=== PATIENT | female | born 1930 | race Caucasian/White ===

== ENCOUNTER → 2017-05-12 | Outpatient (CLI) | payer MEDICARE, BC ==
[~2017-05-12] MED LIST: AMLO2.5T PO; SYNT88TA PO
[2017-05-12 13:19] LABS: BASOPHIL % 0.6 % (0.0-2.0); EOSINOPHIL # 0.1 TH/MM3 (0-0.4); EOSINOPHIL % 1.5 % (0.0-4.0); HEMATOCRIT 36.1 % (35.0-46.0); HEMO FLAGS DIFF FINAL; LYMPH % 26.8 % (9.0-44.0); MEAN CELL VOLUME 90.8 FL (80.0-100.0); MEAN CORPUSCULAR HEMOGLOBIN 29.7 PG (27.0-34.0); MEAN CORPUSCULAR HGB CONC 32.7 % (32.0-36.0); MONO % 6.2 % (0.0-8.0); NEUT % 64.9 % (16.0-70.0); PLATELET COUNT 311 TH/MM3 (150-450); RED BLOOD COUNT 3.97 MIL/MM3 (4.00-5.30); RED CELL DISTRIBUTION WIDTH 14.3 % (11.6-17.2); WHITE BLOOD COUNT 7.6 TH/MM3 (4.0-11.0)
[2017-05-12 13:35] LABS: ANION GAP 8 MEQ/L (5-15); AST (GOT) 18 U/L (15-37); BICARBONATE 26.5 MEQ/L (21.0-32.0); BLOOD UREA NITROGEN 20 MG/DL (7-18); CHLORIDE 106 MEQ/L (98-107); POTASSIUM 3.8 MEQ/L (3.5-5.1); SODIUM (NA) 140 MEQ/L (136-145)
[2017-05-12 13:36] LABS: GLOMERULAR FILTRATION RATE 66 ML/MIN (>89); GLUCOSE,FASTING 86 MG/DL (74-99)
[2017-05-12 13:48] LABS: ALKALINE PHOSPHATASE 63 U/L (45-117); ALT (GPT) 22 U/L (10-53); FREE T4 1.13 NG/DL (0.76-1.46); HDL CHOLESTEROL 60.5 MG/DL (40.0-60.0); LDL CHOLESTEROL 193 MG/DL (0-99); TOTAL BILIRUBIN ADULT 0.4 MG/DL (0.2-1.0)
== END ==
LOC: PLAB 08:20
PROVIDERS: ATTEND Family Medicine
DX: E78.4 Other hyperlipidemia (principal); E03.9 Hypothyroidism, unspecified; M81.0 Age-related osteoporosis without current pathological fracture; E55.9 Vitamin D deficiency, unspecified
CPT/HCPCS: 36415; 80053; 80061; 82306; 84439; 84443; 85025

== ENCOUNTER → 2017-11-17 | Outpatient (CLI) | payer MEDICARE, BC ==
[2017-11-17 09:42] LABS: AUTOMATED NEUTROPHIL # 5.3 TH/MM3 (1.8-7.7); BASOPHIL # 0.1 TH/MM3 (0-0.2); BASOPHIL % 0.8 % (0.0-2.0); EOSINOPHIL # 0.1 TH/MM3 (0-0.4); HEMATOCRIT 34.9 % (35.0-46.0); HEMO FLAGS DIFF FINAL; LYMPHOCYTE # 2.1 TH/MM3 (1.0-4.8); MEAN CORPUSCULAR HEMOGLOBIN 31.3 PG (27.0-34.0); MEAN CORPUSCULAR HGB CONC 33.7 % (32.0-36.0); NEUT % 66.2 % (16.0-70.0); PLATELET COUNT 289 TH/MM3 (150-450); RED BLOOD COUNT 3.76 MIL/MM3 (4.00-5.30); RED CELL DISTRIBUTION WIDTH 14.1 % (11.6-17.2); WHITE BLOOD COUNT 8.1 TH/MM3 (4.0-11.0)
[2017-11-17 10:03] LABS: ANION GAP 6 MEQ/L (5-15); AST (GOT) 16 U/L (15-37); BICARBONATE 28.3 MEQ/L (21.0-32.0); BLOOD UREA NITROGEN 20 MG/DL (7-18); CHLORIDE 105 MEQ/L (98-107); GLOMERULAR FILTRATION RATE 55 ML/MIN (>89); GLUCOSE,FASTING 90 MG/DL (74-99); POTASSIUM 3.9 MEQ/L (3.5-5.1); SODIUM (NA) 139 MEQ/L (136-145)
[2017-11-17 10:12] LABS: ALKALINE PHOSPHATASE 62 U/L (45-117); ALT (GPT) 16 U/L (10-53); FREE T4 1.02 NG/DL (0.76-1.46); HDL CHOLESTEROL 62.7 MG/DL (40.0-60.0); LDL CHOLESTEROL 163 MG/DL (0-99); TOTAL BILIRUBIN ADULT 0.4 MG/DL (0.2-1.0)
== END ==
LOC: PLAB 07:02
PROVIDERS: ATTEND Family Medicine
DX: E78.4 Other hyperlipidemia (principal); E03.9 Hypothyroidism, unspecified; M81.0 Age-related osteoporosis without current pathological fracture; E55.9 Vitamin D deficiency, unspecified
CPT/HCPCS: 36415; 80053; 80061; 82306; 84439; 84443; 85025

== ENCOUNTER → 2018-05-15 | Outpatient (CLI) | payer MEDICARE, BC ==
[2018-05-15 10:33] LABS: BASOPHIL % 0.5 % (0.0-2.0); EOSINOPHIL # 0.1 TH/MM3 (0-0.4); EOSINOPHIL % 0.8 % (0.0-4.0); HEMATOCRIT 38.4 % (35.0-46.0); HEMOGLOBIN 12.7 GM/DL (11.6-15.3); LYMPH % 25.5 % (9.0-44.0); LYMPHOCYTE # 2.3 TH/MM3 (1.0-4.8); MEAN CELL VOLUME 90.5 FL (80.0-100.0); MEAN CORPUSCULAR HEMOGLOBIN 29.9 PG (27.0-34.0); MEAN PLATELET VOLUME 8.4 FL (7.0-11.0); MONO % 6.9 % (0.0-8.0); MONOCYTE # 0.6 TH/MM3 (0-0.9); NEUT % 66.3 % (16.0-70.0); PLATELET COUNT 277 TH/MM3 (150-450); RED BLOOD COUNT 4.24 MIL/MM3 (4.00-5.30); RED CELL DISTRIBUTION WIDTH 14.3 % (11.6-17.2); WHITE BLOOD COUNT 9.1 TH/MM3 (4.0-11.0)
[2018-05-15 11:03] LABS: ALBUMIN 3.7 GM/DL (3.4-5.0); BICARBONATE 26.5 MEQ/L (21.0-32.0); CALCIUM 8.7 MG/DL (8.5-10.1); CHLORIDE 107 MEQ/L (98-107); CHOLESTEROL 268 MG/DL (120-200); CREATININE 0.93 MG/DL (0.50-1.00); GLOMERULAR FILTRATION RATE 57 ML/MIN (>89); SODIUM (NA) 143 MEQ/L (136-145)
[2018-05-15 11:24] LABS: ALKALINE PHOSPHATASE 67 U/L (45-117); ALT (GPT) 23 U/L (10-53); AST (GOT) 18 U/L (15-37); BLOOD UREA NITROGEN 15 MG/DL (7-18); CHOLESTEROL/ HDL RATIO 4.19 RATIO; FREE T4 1.38 NG/DL (0.76-1.46); GLUCOSE,FASTING 87 MG/DL (74-99); HDL CHOLESTEROL 63.9 MG/DL (40.0-60.0); LDL CHOLESTEROL 180 MG/DL (0-99); TOTAL BILIRUBIN ADULT 0.4 MG/DL (0.2-1.0); TOTAL PROTEIN 7.6 GM/DL (6.4-8.2); TRIGLYCERIDES 123 MG/DL (42-150)
== END ==
LOC: PLAB 08:11
PROVIDERS: ATTEND Family Medicine
DX: E78.4 Other hyperlipidemia (principal); E55.9 Vitamin D deficiency, unspecified; E03.9 Hypothyroidism, unspecified
CPT/HCPCS: 36415; 80053; 80061; 82306; 84439; 84443; 85025

== ENCOUNTER 2018-08-11 14:29 | Observation (INO) ==
--- NOTE | 2018-08-11 15:45 | ED ---
HPI General Chief complaint: Extremity Injury, Upper Stated complaint: shoulder pain Time Seen by Provider: 08/11/18 15:18 Source: patient and family Mode of arrival: ambulatory Limitations: no limitations History of Present Illness HPI narrative: patient has dementia, and has a POA. per daughter has a DNR in place. PCP is dr nazario. last week patient was admitted for TIA today wilian is seen for c/o left shoulder and wrist pain....denies other apparent symptoms however daughter noticed hr has been decreasing from the 70's down to 40. Onset (ago): day(s) (1) Location: left and upper extremity Radiation: non-radiation Severity: mild Severity scale (1-10): 4 Quality: sharp Pain Consistency: intermittent Relieving factors: none Exacerbating factors: none Associated symptoms: denies other symptoms Treatments prior to arrival: none Related Data Home Medications Medication Instructions Recorded Confirmed amlodipine 5 mg PO DAILY 08/05/18 08/11/18 donepezil 10 mg PO DAILY 08/05/18 08/11/18 ergocalciferol (vitamin D2) 50,000 unit PO QWEEK 08/05/18 08/11/18 [Vitamin D2] levothyroxine 88 mcg PO DAILY 08/05/18 08/11/18 aspirin 81 mg PO DAILY 08/11/18 08/11/18 Allergies Allergy/AdvReac Type Severity Reaction Status Date / Time quetiapine [From Seroquel] AdvReac Tingling Verified 08/11/18 15:39 Review of Systems ROS: all other systems reviewed are negative PMFSH History History Provided By: Patient Medical History Medical History Alzheimer disease (Acute) Hypertension (Acute) Hypothyroid (Acute) Social History Social History Substance History: No History of Abuse Second Hand Smoke Exposure: No Smoking Status: Never smoker How Often Do You Have a Drink Containing Alcohol: Never Recent Travel in [facility] within the Last 8 Weeks: No Recent Out of Country Travel within the Last 8 Weeks: No Exam Narrative Exam Narrative: GENERAL: elderly female in no apparent distress. SKIN: Warm and dry. HEAD: Atraumatic. Normocephalic. EYES: Pupils equal and round. No scleral icterus. No injection or drainage. ENT: No nasal bleeding or discharge. Mucous membranes pink and moist. NECK: Trachea midline. No JVD. CARDIOVASCULAR: bradycardic rate, irregular rhythm RESPIRATORY: No accessory muscle use. Clear to auscultation. Breath sounds equal bilaterally. GASTROINTESTINAL: Abdomen soft, non-tender, nondistended. No rebound or guarding MUSCULOSKELETAL: Extremities without clubbing, cyanosis, or edema. No obvious deformities. NEUROLOGICAL: Awake and alert. No obvious cranial nerve deficits. Motor grossly within normal limits. Five out of 5 muscle strength in the arms and legs. Normal speech. PSYCHIATRIC: Appropriate mood and affect; insight and judgment normal. Course Initial Documented Vital Signs Temperature 98.9 F 08/11/18 14:49 Pulse Rate 40 L 08/11/18 14:49 Respiratory Rate 16 08/11/18 14:49 Blood Pressure 112/64 08/11/18 14:49 Pulse Oximetry 98 08/11/18 14:49 Last Documented Vital Signs Temperature 98.9 F 08/11/18 14:49 Pulse Rate 64 08/11/18 15:42 Respiratory Rate 17 08/11/18 15:42 Blood Pressure 142/62 H 08/11/18 15:42 Pulse Oximetry 99 08/11/18 15:42 Medical Decision Making MDM Narrative Medical decision making narrative: No leukocytosis, no major anemia is H&H is 11.5/35, normal platelet count, no evidence of any major left shift. Electrolytes are all within normal limits. Normal kidney liver and pancreatic enzymes. First set of cardiac enzymes negative elevated beta natruretic peptide of 270 Normal TSH screen X-ray of the wrist read by radiologist as diffuse bone demineralization and mild osteoarthritic findings but without evidence of fracture Shoulder x-ray read by radiologist as chronic rotator cuff injury, degenerative changes as detailed above. However no fracture or dislocation noted Chest x-ray read by radiologist as no acute cardiopulmonary disease Medical Screen Exam Complete: Yes Emergency Medical Condition: Yes Medical Records Medical records reviewed: Yes I reviewed the patient's medical records. Lab Data Result diagrams: 08/11/18 16:03 08/11/18 16:03 Lab Results 08/11/18 08/11/18 08/11/18 Range/Units 16:03 16:03 16:03 WBC 8.0 (4.0-11.0) th/mm3 RBC 3.73 L (4.00-5.30) mil/mm3 Hgb 11.5 L (11.6-15.3) gm/dL Hct 34.9 L (35.0-46.0) % MCV 93.6 (80.0-100.0) fL MCH 30.9 (27.0-34.0) pg MCHC 33.0 (32.0-36.0) % RDW 13.4 (11.6-17.2) % Plt Count 287 (150-450) th/mm3 MPV 8.6 (7.0-11.0) fL Neut % (Auto) 75.8 H (16.0-70.0) % Lymph % (Auto) 16.4 (9.0-44.0) % Cass % (Auto) 6.9 (0.0-8.0) % Eos % (Auto) 0.3 (0.0-4.0) % Baso % (Auto) 0.6 (0.0-2.0) % Neut # (Auto) 6.1 (1.8-7.7) th/mm3 Lymph # (Auto) 1.3 (1.0-4.8) th/mm3 Cass # (Auto) 0.6 (0.0-0.9) th/mm3 Eos # (Auto) 0.0 (0.0-0.4) th/mm3 Baso # (Auto) 0.0 (0.0-0.2) th/mm3 WBC Differential . Differential Comment Auto diff final Sodium 140 (136-145) meq/L Potassium 3.5 (3.5-5.1) meq/L Chloride 104 (98-107) meq/L Carbon Dioxide 24.8 (21.0-32.0) meq/L Anion Gap 11 (5-15) meq/L BUN 10 (7-18) mg/dL Creatinine 0.96 (0.50-1.00) mg/dL Estimated GFR 55 L (>89) mL/min Random Glucose 117 H (74-106) mg/dL Calcium 8.4 L (8.5-10.1) mg/dL AST 15 (15-37) U/L ALT 14 (10-53) U/L B-Natriuretic Peptide 217 H (0-100) pg/mL Albumin 2.9 L (3.4-5.0) g/dL Lipase 37 L (73-393) U/L TSH (0.358-3.740) uIU/mL 08/11/18 Range/Units 16:03 WBC (4.0-11.0) th/mm3 RBC (4.00-5.30) mil/mm3 Hgb (11.6-15.3) gm/dL Hct (35.0-46.0) % MCV (80.0-100.0) fL MCH (27.0-34.0) pg MCHC (32.0-36.0) % RDW (11.6-17.2) % Plt Count (150-450) th/mm3 MPV (7.0-11.0) fL Neut % (Auto) (16.0-70.0) % Lymph % (Auto) (9.0-44.0) % Cass % (Auto) (0.0-8.0) % Eos % (Auto) (0.0-4.0) % Baso % (Auto) (0.0-2.0) % Neut # (Auto) (1.8-7.7) th/mm3 Lymph # (Auto) (1.0-4.8) th/mm3 Cass # (Auto) (0.0-0.9) th/mm3 Eos # (Auto) (0.0-0.4) th/mm3 Baso # (Auto) (0.0-0.2) th/mm3 WBC Differential Differential Comment Sodium (136-145) meq/L Potassium (3.5-5.1) meq/L Chloride (98-107) meq/L Carbon Dioxide (21.0-32.0) meq/L Anion Gap (5-15) meq/L BUN (7-18) mg/dL Creatinine (0.50-1.00) mg/dL Estimated GFR (>89) mL/min Random Glucose (74-106) mg/dL Calcium (8.5-10.1) mg/dL AST (15-37) U/L ALT (10-53) U/L B-Natriuretic Peptide (0-100) pg/mL Albumin (3.4-5.0) g/dL Lipase (73-393) U/L TSH 2.160 (0.358-3.740) uIU/mL Imaging Data Radiologist's impression: Chest X-Ray 08/11/18 15:20 CONCLUSION: No acute cardiopulmonary disease. Shoulder X-Ray 08/11/18 15:22 CONCLUSION: 1. Chronic rotator cuff injury. Outpatient MRI could be utilized to further assess. 2. Degenerative changes as detailed above. Wrist X-Ray 08/11/18 15:22 CONCLUSION: Diffuse bone demineralization and mild osteoarthritic findings of the wrist. No evidence of acute fracture. ECG Data EKG Prior to Arrival: No Attestation: I personally reviewed and interpreted this ECG as follows: Prior ECG tracings: not available for review Interpretation: Normal sinus rhythm with frequent ectopic PVCs in a bigeminal pattern, baseline heart rate approximately high 30s to low 40s, however due to the bigeminy PVCs the patient's heart rate is been recognized by the machine at 68. Right bundle branch block, first-degree AV block Discharge Plan Discharge Disposition Patient Disposition: 30 Still Patient Discharge Condition Condition: Fair Discharge Details Diagnosis: Bradycardia, Bigeminal rhythm Physicians Team ED Provider: Abdoulaye Mohan Primary Care Provider: Verenice Nazario Rxs /Orders / Referrals /Forms Prescriptions: No Action aspirin 81 mg Tablet,Chewable 81 mg PO DAILY RF: 0 amlodipine 5 mg Tablet 5 mg PO DAILY RF: 0 levothyroxine 88 mcg Capsule 88 mcg PO DAILY RF: 0 donepezil 10 mg Tablet 10 mg PO DAILY RF: 0 ergocalciferol (vitamin D2) [Vitamin D2] 50,000 unit Capsule 50,000 unit PO QWEEK RF: 0 Status ED Status: With Doctor
--- NOTE | 2018-08-11 16:19 | XR ---
EXAM DATE: 08/11/2018 4:00 PM EDT AGE/SEX: 88 years / Female INDICATIONS: Chest pain. CLINICAL DATA: This is the patient's initial encounter. Patient reports that signs and symptoms have been present for 3 days and indicates a pain score of 5/10. MEDICAL/SURGICAL HISTORY: None. None. COMPARISON: [facility] [place] 1V SINGLE AP, 08/05/2018. . FINDINGS: A single AP view of the chest demonstrates the lungs to be symmetrically aerated without evidence of mass, infiltrate or effusion. The cardiomediastinal contours are unremarkable. High riding humeral h kareem bilaterally. Degenerative changes involving the shoulders bilaterally as well as the thoracic sp ine. Mild scoliotic curvature. CONCLUSION: No acute cardiopulmonary disease. Electronically signed by: Phoenix Lewis MD 08/11/2018 4:18 PM EDT
--- NOTE | 2018-08-11 16:20 | XR ---
EXAM DATE: 08/11/2018 4:05 PM EDT AGE/SEX: 88 years / Female INDICATIONS: Left wrist pain. Unknown trauma. CLINICAL DATA: This is the patient's initial encounter. Patient reports that signs and symptoms have been present for 3 days and indicates a pain score of 6/10. MEDICAL/SURGICAL HISTORY: None. None. COMPARISON: No prior exams available for comparison. FINDINGS: 3 views of the left wrist. Diffuse bone demineralization. Small osteophytes and mild narrowing of the thumb carpometacarpal joint and scaphoid trapezium trapezoid joint. No evidence of fracture. Alignme nt within normal limits. Chondrocalcinosis of the triangular fibrocartilage. CONCLUSION: Diffuse bone demineralization and mild osteoarthritic findings of the wrist. No evidence of acute fra cture. Electronically signed by: Domo Yu MD 08/11/2018 4:19 PM EDT
--- NOTE | 2018-08-11 16:22 | XR ---
EXAM DATE: 08/11/2018 4:04 PM EDT AGE/SEX: 88 years / Female INDICATIONS: Chronic left shoulder pain. CLINICAL DATA: This is the patient's initial encounter. Patient reports that signs and symptoms have been present for 3 days and indicates a pain score of 5/10. MEDICAL/SURGICAL HISTORY: None. None. COMPARISON: No prior exams available for comparison. FINDINGS: 4 views left shoulder reveal a high riding humeral head. There is narrowing of the subacromial space. Degenerative changes at the AC joint with mild spur formation. Glenohumeral joint shows mild narrowi ng without osteophyte production. No fracture or dislocation. Soft tissues are unremarkable. CONCLUSION: 1. Chronic rotator cuff injury. Outpatient MRI could be utilized to further assess. 2. Degenerative changes as detailed above. Electronically signed by: Phoenix Lewis MD 08/11/2018 4:21 PM EDT
[2018-08-11 16:27] LABS: Baso % (Auto) 0.6 % (0.0-2.0); Eos % (Auto) 0.3 % (0.0-4.0); Hematocrit 34.9 % (35.0-46.0); Hemoglobin 11.5 gm/dL (11.6-15.3); Lymph # (Auto) 1.3 th/mm3 (1.0-4.8); Lymph % (Auto) 16.4 % (9.0-44.0); Mean Corpuscular Hemoglobin 30.9 pg (27.0-34.0); Mean Corpuscular Volume 93.6 fL (80.0-100.0); Mean Platelet Volume 8.6 fL (7.0-11.0); Mono # (Auto) 0.6 th/mm3 (0.0-0.9); Mono % (Auto) 6.9 % (0.0-8.0); Neut # (Auto) 6.1 th/mm3 (1.8-7.7); Neut % (Auto) 75.8 % (16.0-70.0); Platelet Count 287 th/mm3 (150-450); Red Blood Count 3.73 mil/mm3 (4.00-5.30); Red Cell Distribution Width 13.4 % (11.6-17.2)
[2018-08-11 16:49] LABS: Alanine Aminotransferase 14 U/L (10-53); Albumin 2.9 g/dL (3.4-5.0); Anion Gap 11 meq/L (5-15); Aspartate Aminotransferase 15 U/L (15-37); Blood Urea Nitrogen 10 mg/dL (7-18); Calcium 8.4 mg/dL (8.5-10.1); Carbon Dioxide 24.8 meq/L (21.0-32.0); Chloride 104 meq/L (98-107); Glomerular Filtration Rate 55 mL/min (>89); Glucose,Random 117 mg/dL (74-106); Lipase 37 U/L (73-393); Potassium 3.5 meq/L (3.5-5.1); Sodium 140 meq/L (136-145)
[2018-08-11 16:53] LABS: Alkaline Phosphatase 67 U/L (45-117); Total Protein 6.8 g/dL (6.4-8.2)
[2018-08-11 17:15] LABS: Creatine Kinase 62 U/L (26-192)
[2018-08-11 17:35] LABS: Bacteria,Urine Rare /hpf; Bilirubin,Urine Negative (Negative); Clarity,Urine Hazy (Clear); Color,Urine Yellow (Yellw/Straw); Glucose,Urine (UA) Negative (Negative); Leukocyte Esterase,Urine Moderate (Negative); Nitrite,Urine Negative (Negative); Specific Gravity,Urine 1.003 (1.002-1.035); Squamous Epithelial Cell,Urine 1 /hpf (0-5)
[2018-08-11] MEDS ORDERED: Acetaminophen 325 MG Tablet PO PRN (18:02)
--- NOTE | 2018-08-11 18:21 | P.HP ---
History of Present Illness Primary Care Physician: Verenice Holland MD History of Present Illness: 88-year-old female with a history of dementia and hypertension presents to the ER today after her juice tester found that her heart rate was in the 30s. The overall picture began approximately 6 weeks ago when she began to experience periodic dyspnea with exertion, unlike her norm. Approximately 2 weeks ago she was started on Seroquel for behavioral issues related to dementia. She began having episodes of unresponsiveness and odd twitch-like behavior. 1 week ago she had a significant episode with weakness and unconsciousness and was brought to the ER for evaluation. Evaluation at that time showed no abnormality and she was deemed to have had a TIA. Since that time she has had less severe episodes including facial twitching, periodic brief unresponsiveness, head bobbing, speaking in tongues. These behaviors led up to today and raise concerns that the low heart rate might be related to these episodes. She has been off of Seroquel for the last 5 days, due to concerns that this may be altering the heart rate. She denies any nausea vomiting or diarrhea. She denies any chest pain, shortness of breath at rest, diaphoresis. She denies any dysuria or fevers despite having a urinary tract infection on urine screen. Review of Systems All other systems reviewed negative except as stated in HPI PMFSH - History History Provided By: Patient - Medical History Medical History: Medical History (Last Reviewed 08/11/18 @ 15:40 by Abdoulaye Mohan) Alzheimer disease Hypertension Hypothyroid - Family History Family History: Family History (Last Updated 08/11/18 @ 18:11 by Serge Garcia MD) Other Hypertension - Tobacco History Second Hand Smoke Exposure: No Smoking Status: Never smoker - Alcohol History How Often Do You Have a Drink Containing Alcohol: Never - Substance Use History Substance History: No History of Abuse - Travel History Recent Travel in the [place] Within the Last 8 Weeks: No Recent Travel Out of the Country Within the Last 8 Weeks: No - Immunization History Tetanus Immunization: Unsure Hx Influenza Vaccine This Season: Yes Medications and Allergies Active Medications: Active Medications Acetaminophen (Tylenol) 650 mg PO Q4H PRN PRN Reason: Temp > 100.4 Enoxaparin Sodium (Lovenox Inj) 40 mg SQ Q24H LAVERNE Ceftriaxone Sodium 1,000 mg/ (Sodium Chloride) 100 mls @ 200 mls/hr IV.SIG Q24H LAVERNE Ondansetron HCl (Zofran Inj) 4 mg IV.PUSH Q6H PRN PRN Reason: NAUSEA OR VOMITING Sennosides (Senokot) 17.2 mg PO Q12H PRN PRN Reason: Moderate Constipation Sodium Chloride (Ns Flush) 2 ml IV.FLUSH UNSCH PRN PRN Reason: FLUSH AFTER USING IV ACCESS Allergies Allergy/AdvReac Type Severity Reaction Status Date / Time quetiapine [From Seroquel] AdvReac Tingling Verified 08/11/18 15:39 Home Medications Medication Instructions Recorded Confirmed Type amlodipine 5 mg PO DAILY 08/05/18 08/11/18 History donepezil 10 mg PO DAILY 08/05/18 08/11/18 History ergocalciferol (vitamin D2) 50,000 unit PO QWEEK 08/05/18 08/11/18 History [Vitamin D2] levothyroxine 88 mcg PO DAILY 08/05/18 08/11/18 History aspirin 81 mg PO DAILY 08/11/18 08/11/18 History Exam Vital signs: Vital Signs 08/11/18 14:49 08/11/18 15:42 Temperature 98.9 F Pulse Rate 40 L 64 Respiratory Rate 16 17 Blood Pressure 112/64 142/62 H Pulse Oximetry 98 99 Intake & Output 08/10/18 08/11/18 08/11/18 18:59 06:59 18:59 Weight 54.431 kg Other: # Voids 2 Narrative: GENERAL: AAOx1, no acute distress, adequate nutrition SKIN: Warm and dry, no rashes. HEAD: Atraumatic. Normocephalic. EYES: Pupils equal, round, reactive to light. No scleral icterus. No injection or drainage. ENT: No nasal bleeding or discharge. Moist mucous membranes. Nonerythematous oropharynx. NECK: Trachea midline. No JVD. Thyroid size within normal limits. CARDIOVASCULAR: Bradycardia in the 40s, 1/6 systolic ejection murmur, midsystolic gallop. RESPIRATORY: Clear and equal to auscultation bilaterally. No crackles, no wheezes. No accessory muscle use. GASTROINTESTINAL: Abdomen soft, non-tender, nondistended, normal active bowel sounds. Hepatic and splenic margins not palpable. MUSCULOSKELETAL: Extremities without clubbing or cyanosis. No obvious deformities. No edema. NEUROLOGICAL: Awake and alert. No obvious cranial nerve deficits. Motor grossly within normal limits. No focal deficits. Five out of 5 muscle strength in the arms and legs. Normal speech. PSYCHIATRIC: Appropriate mood and affect; memory deficits of dementia, unable to make medical decisions. Results - Labs CBC & Chem 7: 08/11/18 16:03 08/11/18 16:03 Labs: Laboratory Results - last 24 hr 08/11/18 08/11/18 08/11/18 16:03 16:03 16:03 WBC 8.0 RBC 3.73 L Hgb 11.5 L Hct 34.9 L MCV 93.6 MCH 30.9 MCHC 33.0 RDW 13.4 Plt Count 287 MPV 8.6 Neut % (Auto) 75.8 H Lymph % (Auto) 16.4 Brule % (Auto) 6.9 Eos % (Auto) 0.3 Baso % (Auto) 0.6 Neut # (Auto) 6.1 Lymph # (Auto) 1.3 Brule # (Auto) 0.6 Eos # (Auto) 0.0 Baso # (Auto) 0.0 WBC Differential . Differential Comment Auto diff final Sodium 140 Potassium 3.5 Chloride 104 Carbon Dioxide 24.8 Anion Gap 11 BUN 10 Creatinine 0.96 Estimated GFR 55 L Random Glucose 117 H Calcium 8.4 L Total Bilirubin 0.3 AST 15 ALT 14 Alkaline Phosphatase 67 Total Creatine Kinase 62 Troponin I Less than 0.02 L B-Natriuretic Peptide 217 H Total Protein 6.8 D Albumin 2.9 L Lipase 37 L TSH Urine Color Urine Clarity Urine pH Ur Specific Huson Urine Protein Urine Glucose (UA) Urine Ketones Urine Occult Blood Urine Nitrate Urine Bilirubin Urine Urobilinogen Ur Leukocyte Esterase Urine RBC Urine WBC Ur Squamous Epith Cells Urine Bacteria Micro UA Comment Ur Microscopic Review Urine Culture Comments 08/11/18 08/11/18 16:03 16:12 WBC RBC Hgb Hct MCV MCH MCHC RDW Plt Count MPV Neut % (Auto) Lymph % (Auto) Brule % (Auto) Eos % (Auto) Baso % (Auto) Neut # (Auto) Lymph # (Auto) Brule # (Auto) Eos # (Auto) Baso # (Auto) WBC Differential Differential Comment Sodium Potassium Chloride Carbon Dioxide Anion Gap BUN Creatinine Estimated GFR Random Glucose Calcium Total Bilirubin AST ALT Alkaline Phosphatase Total Creatine Kinase Troponin I B-Natriuretic Peptide Total Protein Albumin Lipase TSH 2.160 Urine Color Yellow Urine Clarity Hazy H Urine pH 7.0 Ur Specific Huson 1.003 Urine Protein Negative Urine Glucose (UA) Negative Urine Ketones Negative Urine Occult Blood Small H Urine Nitrate Negative Urine Bilirubin Negative Urine Urobilinogen Less than 2 Ur Leukocyte Esterase Moderate H Urine RBC 1 Urine WBC 22 H Ur Squamous Epith Cells 1 Urine Bacteria Rare H Micro UA Comment Culture indicated Ur Microscopic Review Not Reportable Urine Culture Comments Culture indicated - Imaging Impressions Chest X-Ray 08/11/18 15:20 CONCLUSION: No acute cardiopulmonary disease. Shoulder X-Ray 08/11/18 15:22 CONCLUSION: 1. Chronic rotator cuff injury. Outpatient MRI could be utilized to further assess. 2. Degenerative changes as detailed above. Wrist X-Ray 08/11/18 15:22 CONCLUSION: Diffuse bone demineralization and mild osteoarthritic findings of the wrist. No evidence of acute fracture. Caprini VTE Risk Assessment Caprini VTE Risk Assessment: Moderate/High Risk (score >= 2) Caprini Risk Assessment Model: Point Value = 1 Point Value = 2 Point Value = 3 Point Value = 5 Age 41-60 Minor surgery BMI > 25 kg/m2 Swollen legs Varicose veins or History of unexplained or recurrent spontaneous Oral contraceptives or hormone replacement Sepsis (< 1 month) Serious lung disease, including pneumonia (< 1 month) Abnormal pulmonary function Acute myocardial infarction Congestive heart failure (< 1 month) History of inflammatory bowel disease Medical patient at bed rest Age 61-74 Arthroscopic surgery Major open surgery (> 45 min) Laparoscopic surgery (> 45 min) Malignancy Confined to bed (> 72 hours) Immobilizing plaster cast Central venous access Age >= 75 History of VTE Family history of VTE Factor V Leiden Prothrombin [id number] Lupus anticoagulant Anticardiolipin antibodies Elevated serum homocysteine Heparin-induced thrombocytopenia Other congenital or acquired thrombophilia Stroke (< 1 month) Elective arthroplasty Hip, pelvis, or leg fracture Acute spinal cord injury (< 1 month) Prophylaxis Regimen: Total Risk Factor Score Risk Level Prophylaxis Regimen 0-1 Low Early ambulation 2 Moderate Order ONE of the following: *Sequential Compression Device (SCD) *Heparin 5000 units SQ BID 3-4 Higher Order ONE of the following medications: *Heparin 5000 units SQ TID *Enoxaparin/Lovenox 40 mg SQ daily (WT < 150 kg, CrCl > 30 mL/min) *Enoxaparin/Lovenox 30 mg SQ daily (WT < 150 kg, CrCl > 10-29 mL/min) *Enoxaparin/Lovenox 30 mg SQ BID (WT < 150 kg, CrCl > 30 mL/min) AND/OR *Sequential Compression Device (SCD) 5 or more Highest Order ONE of the following medications: *Heparin 5000 units SQ TID (Preferred with Epidurals) *Enoxaparin/Lovenox 40 mg SQ daily (WT < 150 kg, CrCl > 30 mL/min) *Enoxaparin/Lovenox 30 mg SQ daily (WT < 150 kg, CrCl > 10-29 mL/min) *Enoxaparin/Lovenox 30 mg SQ BID (WT < 150 kg, CrCl > 30 mL/min) AND *Sequential Compression Device (SCD) Assessment and Plan - Plan Symptomatic bradycardia Pattern is ongoing for at least the last 6 weeks and seems to be worsening Questionable involvement of Seroquel and/or urinary tract infection Rule out ACS overnight with serial enzymes and EKGs Follow on telemetry Cardiology consult Urinary tract infection Asymptomatic, found on ER screen Rocephin started Alzheimer's dementia Worsened lately related to stress, selling house, etc. Seroquel was helping with some behavioral issues but was stopped 5 days ago due to suspicion of causing bradycardia Follow clinically, watch for Hypothyroidism Continue home dose levothyroxine TSH with the ER labs was within normal limits Hypertension Patient has been suffering recently with episodes of hypotension due to bradycardia Hold any blood pressure meds and follow vitals DVT Prophylaxis Lovenox
[2018-08-11] MEDS: Enoxaparin Inj 40 MG/0.4 ML Syringe SQ SCH (20:14)
--- NOTE | 2018-08-11 21:54 | ECG ---
Date Performed: 08/11/2018 Time Performed: 18:24:20 PTAGE: 88 years EKG: Sinus rhythm WITH FREQUENT ECTOPIC PREMATURE COMPLEXES MARKED LEFT AXIS DEVIATION RIGHT BUNDLE BRANCH BLOCK ABNOR MAL ECG PREVIOUS TRACING : 08/11/2018 15.37 DOCTOR: Graciela Henson Interpretating Date/Time 08/11/2018 21:52:45
--- NOTE | 2018-08-11 21:58 | ECG ---
Date Performed: 08/11/2018 Time Performed: 15:37:14 PTAGE: 88 years EKG: Sinus rhythm WITH FREQUENT ECTOPIC PREMATURE COMPLEXES IN A BIGEMINAL PATTERN BORDERLINE LEFT AXIS DEVIATION RIGH T BUNDLE BRANCH BLOCK ABNORMAL ECG PREVIOUS TRACING : 08/05/2018 09.56 DOCTOR: Graciela Henson Interpretating Date/Time 08/11/2018 21:55:46
--- NOTE | 2018-08-12 15:18 | P.PN ---
Subjective Interval history: Patient is seen lying quietly in bed. Her , stepdaughter and full-time caregiver are present at bedside. Patient is very pleasant and answers my questions however it is obvious she is a poor historian. Most of her information is given by her caregiver and family. Caregiver reports the patient has been having multiple episodes of diarrhea. She is also been having incidents where she will lose focus, gasp and then her right arm will start shaking. Frequently is assisted to floor during these episodes and less seated. When patient "awakes" from this she sometimes remembers the incident beginning but does not remember what happens afterwards. She does not have any history of seizure disorder. Family does report a recent change in medication due to increased dementia-Seroquel was added. She recently had lab work at her PCP that the family reports was normal. No recent antibiotic use per family. Physical Exam Vital signs: Vital Signs 08/11/18 15:42 08/11/18 18:12 08/11/18 19:05 Temperature 98.1 F 98.1 F Pulse Rate 64 71 76 Respiratory Rate 17 16 20 Blood Pressure 142/62 H 119/87 166/72 H Pulse Oximetry 99 97 97 08/12/18 00:00 08/12/18 04:00 08/12/18 08:14 Temperature 97.8 F 97.9 F Pulse Rate 70 65 74 Respiratory Rate 19 16 Blood Pressure 150/65 H 153/74 H Pulse Oximetry 96 94 L 08/12/18 11:50 Temperature 98.0 F Pulse Rate 70 Respiratory Rate 20 Blood Pressure 154/87 H Pulse Oximetry 96 Intake & Output 08/11/18 08/12/18 08/12/18 18:59 06:59 18:59 Intake Total 60 / 60 Balance 60 / 60 Weight 54.431 kg Intake: Oral 60 / 60 Other: # Voids 2 # Incontinent Voids 1 Date of Last Bowel Movement 08/11/18 Narrative: GENERAL: Well-nourished, well-developed adult female in no obvious distress. SKIN: Warm and dry. HEAD: Atraumatic. Normocephalic. CARDIOVASCULAR: Regular rate and rhythm. murmur RESPIRATORY: No accessory muscle use. Clear to auscultation. Breath sounds equal bilaterally. GASTROINTESTINAL: Abdomen soft, non-tender, non-distended. Positive bowel sounds. MUSCULOSKELETAL: Extremities without clubbing, cyanosis, or edema. No obvious deformities. NEUROLOGICAL: Awake and alert. No obvious cranial nerve deficits. Motor grossly within normal limits. Normal speech. PSYCHIATRIC: Poor historian Results - Labs CBC & Chem 7: 08/11/18 16:03 08/11/18 16:03 Laboratory Results - last 24 hr 08/11/18 08/11/18 08/11/18 16:03 16:03 16:03 WBC 8.0 RBC 3.73 L Hgb 11.5 L Hct 34.9 L MCV 93.6 MCH 30.9 MCHC 33.0 RDW 13.4 Plt Count 287 MPV 8.6 Neut % (Auto) 75.8 H Lymph % (Auto) 16.4 [place] % (Auto) 6.9 Eos % (Auto) 0.3 Baso % (Auto) 0.6 Neut # (Auto) 6.1 Lymph # (Auto) 1.3 [place] # (Auto) 0.6 Eos # (Auto) 0.0 Baso # (Auto) 0.0 WBC Differential . Differential Comment Auto diff final Sodium 140 Potassium 3.5 Chloride 104 Carbon Dioxide 24.8 Anion Gap 11 BUN 10 Creatinine 0.96 Estimated GFR 55 L Random Glucose 117 H Calcium 8.4 L Total Bilirubin 0.3 AST 15 ALT 14 Alkaline Phosphatase 67 Total Creatine Kinase 62 Troponin I Less than 0.02 L B-Natriuretic Peptide 217 H Total Protein 6.8 D Albumin 2.9 L Lipase 37 L TSH Urine Color Urine Clarity Urine pH Ur Specific Mcallister Urine Protein Urine Glucose (UA) Urine Ketones Urine Occult Blood Urine Nitrate Urine Bilirubin Urine Urobilinogen Ur Leukocyte Esterase Urine RBC Urine WBC Ur Squamous Epith Cells Urine Bacteria Micro UA Comment Ur Microscopic Review Urine Culture Comments 08/11/18 08/11/18 08/11/18 16:03 16:12 18:18 WBC RBC Hgb Hct MCV MCH MCHC RDW Plt Count MPV Neut % (Auto) Lymph % (Auto) [place] % (Auto) Eos % (Auto) Baso % (Auto) Neut # (Auto) Lymph # (Auto) [place] # (Auto) Eos # (Auto) Baso # (Auto) WBC Differential Differential Comment Sodium Potassium Chloride Carbon Dioxide Anion Gap BUN Creatinine Estimated GFR Random Glucose Calcium Total Bilirubin AST ALT Alkaline Phosphatase Total Creatine Kinase Troponin I Less than 0.02 L B-Natriuretic Peptide Total Protein Albumin Lipase TSH 2.160 Urine Color Yellow Urine Clarity Hazy H Urine pH 7.0 Ur Specific Mcallister 1.003 Urine Protein Negative Urine Glucose (UA) Negative Urine Ketones Negative Urine Occult Blood Small H Urine Nitrate Negative Urine Bilirubin Negative Urine Urobilinogen Less than 2 Ur Leukocyte Esterase Moderate H Urine RBC 1 Urine WBC 22 H Ur Squamous Epith Cells 1 Urine Bacteria Rare H Micro UA Comment Culture indicated Ur Microscopic Review Not Reportable Urine Culture Comments Culture indicated 08/12/18 00:25 WBC RBC Hgb Hct MCV MCH MCHC RDW Plt Count MPV Neut % (Auto) Lymph % (Auto) [place] % (Auto) Eos % (Auto) Baso % (Auto) Neut # (Auto) Lymph # (Auto) [place] # (Auto) Eos # (Auto) Baso # (Auto) WBC Differential Differential Comment Sodium Potassium Chloride Carbon Dioxide Anion Gap BUN Creatinine Estimated GFR Random Glucose Calcium Total Bilirubin AST ALT Alkaline Phosphatase Total Creatine Kinase Troponin I Less than 0.02 L B-Natriuretic Peptide Total Protein Albumin Lipase TSH Urine Color Urine Clarity Urine pH Ur Specific Mcallister Urine Protein Urine Glucose (UA) Urine Ketones Urine Occult Blood Urine Nitrate Urine Bilirubin Urine Urobilinogen Ur Leukocyte Esterase Urine RBC Urine WBC Ur Squamous Epith Cells Urine Bacteria Micro UA Comment Ur Microscopic Review Urine Culture Comments Microbiology 08/11/18 16:12 Clean Catch Urine Urine Culture - Preliminary gram negative rods - Imaging Impressions Chest X-Ray 08/11/18 15:20 CONCLUSION: No acute cardiopulmonary disease. Shoulder X-Ray 08/11/18 15:22 CONCLUSION: 1. Chronic rotator cuff injury. Outpatient MRI could be utilized to further assess. 2. Degenerative changes as detailed above. Wrist X-Ray 08/11/18 15:22 CONCLUSION: Diffuse bone demineralization and mild osteoarthritic findings of the wrist. No evidence of acute fracture. Assessment and Plan - Plan Symptomatic bradycardia -Pattern is ongoing for at least the last 6 weeks and seems to be worsening -Questionable involvement of Seroquel and/or urinary tract infection -serial enzymes and EKGs -negative -Follow on telemetry -Cardiology consult -cardiology recommends observation overnight and consideration of loop recorder in morning. Reports that she is not appropriate for pacemaker at this time. Urinary tract infection -Asymptomatic, found on ER screen -Rocephin started Alzheimer's dementia -Worsened lately related to stress, selling house, etc. -Seroquel was helping with some behavioral issues but was stopped 5 days ago due to suspicion of causing bradycardia -Follow clinically, watch for ing Hypothyroidism -Continue home dose levothyroxine -TSH with the ER labs was within normal limits Hypertension -Patient has been suffering recently with episodes of hypotension due to bradycardia -Hold any blood pressure meds and follow vitals DVT Prophylaxis Lovenox
--- NOTE | 2018-08-12 17:14 | MB ---
cc: Graciela Henson MD DATE: 08/12/2018 REASON FOR CONSULTATION: Syncopal episode. HISTORY OF PRESENT ILLNESS: Ms. Baldwin is an 88-year-old female with an apparent history of high blood pressure, hypothyroidism and dementia, who was admitted last night due to bradycardia, dizziness and near syncope. Family referred for the past weeks, she was having episodes of near syncope. She was brought to the emergency room a couple of weeks ago and subsequently was discharged. Yesterday, she had a couple episodes of twitching and unresponsiveness. Apparently, they checked her pulse and it was around 30 and she was brought to the emergency room. She was admitted. The chart was reviewed. The patient was evaluated. ALLERGIES: QUETIAPINE. SOCIAL HISTORY: Negative for smoking and drinking. FAMILY HISTORY: Noncontributory to her current medical condition. MEDICATIONS AT HOME: She was on: 1. Amlodipine 5 mg a day. 2. Doxepin. 3. Donepezil 10 mg a day. 4. Vitamin D. 5. Levoxyl 88 mcg a day. 6. Aspirin 81 mg a day. During this hospitalization, ceftriaxone was added and Lovenox subcutaneously. REVIEW OF SYSTEMS: The patient refers no chest pain, no chest discomfort. No dizziness currently. No fever. PHYSICAL EXAMINATION: GENERAL: She is alert, fully oriented to person, place and time. VITAL SIGNS: Blood pressure 154/87, pulse 70, respiratory rate 18. LUNGS: Ventilated. CARDIOVASCULAR: S1, S2. No gallop, no murmur. ABDOMEN: Soft. No mass. EXTREMITIES: No edema. ELECTROCARDIOGRAM: Sinus rhythm, PVCs. LABORATORY DATA: Hemoglobin 11.3, white blood cells 8.0. Potassium 3.5, creatinine 0.96. Troponin less than 0.02. ASSESSMENT AND RECOMMENDATIONS: Ms. Baldwin currently is stable. She is in sinus rhythm. No episodes of bradycardia observed since hospitalization. No dizziness. No near syncope. At this point, my recommendation is observation. I discussed the case extensively with the family. If necessary, a loop recorder will be inserted before discharge home. I will follow Ms. Baldwin during the hospitalization. MD RODRIGO Garrett/wyatt , 03:16 PM , 03:24 PM
[2018-08-12] MEDS: Enoxaparin Inj 40 MG/0.4 ML Syringe SQ SCH (19:34)
--- NOTE | 2018-08-13 15:17 | P.PN ---
Subjective Interval history: Patient is seen lying in bed. Per nursing she had an episode of syncope and shaking while on the commode this morning. Was easily aroused after the episode and had no lingering effects. Patient tells me that she feels fine now. Nursing reports no new episodes since then. Physical Exam Vital signs: Vital Signs 08/12/18 16:00 08/12/18 19:12 08/12/18 23:13 Temperature 97.5 F L 97.7 F 98.1 F Pulse Rate 60 46 L 57 L Respiratory Rate 16 18 18 Blood Pressure 135/77 143/82 H 157/73 H Pulse Oximetry 97 96 96 08/13/18 04:00 08/13/18 06:42 08/13/18 07:22 Temperature 97.4 F L 98.0 F 97.7 F Pulse Rate 48 L 65 67 Respiratory Rate 19 20 16 Blood Pressure 146/77 H 103/56 L 139/64 Pulse Oximetry 96 94 L 98 08/13/18 11:15 Temperature 97.9 F Pulse Rate 59 L Respiratory Rate 18 Blood Pressure 122/72 Pulse Oximetry 99 Intake & Output 08/12/18 08/13/18 08/13/18 18:59 06:59 18:59 Intake Total 300 / 300 Balance 300 / 300 Intake: IV 200 / 200 Rocephin Inj 1,000 MG In NS Inj 200 / 200 100 ML @ 200 mls/hr IV.SIG Q24H [facility] Rx#:[id number] Other 100 / 100 Other: Other Intake Source Saline Solution # Voids 3 2 # Incontinent Voids 1 # Urine Diapers 1 Narrative: GENERAL: Well-nourished, well-developed adult female in no obvious distress. SKIN: Warm and dry. HEAD: Atraumatic. Normocephalic. CARDIOVASCULAR: Regular rate and rhythm. murmur RESPIRATORY: No accessory muscle use. Clear to auscultation. Breath sounds equal bilaterally. GASTROINTESTINAL: Abdomen soft, non-tender, non-distended. Positive bowel sounds. MUSCULOSKELETAL: Extremities without clubbing, cyanosis, or edema. No obvious deformities. NEUROLOGICAL: Awake and alert. No obvious cranial nerve deficits. Motor grossly within normal limits. Normal speech. PSYCHIATRIC: Poor historian Results - Labs CBC & Chem 7: 08/11/18 16:03 08/11/18 16:03 Laboratory Results - last 24 hr 08/13/18 06:36 POC Glucose 126 H Microbiology 08/11/18 16:12 Clean Catch Urine Urine Culture - Final Pseudomonas aeruginosa Escherichia coli Assessment and Plan - Plan Symptomatic bradycardia -Pattern is ongoing for at least the last 6 weeks and seems to be worsening -Questionable involvement of Seroquel and/or urinary tract infection -serial enzymes and EKGs -negative -Follow on telemetry -Cardiology consult -cardiology recommends observation overnight and consideration of loop recorder in morning. Reports that she is not appropriate for pacemaker at this time. Urinary tract infection -Asymptomatic, found on ER screen -Rocephin started -cultures indicate sensitivity Alzheimer's dementia -Worsened lately related to stress, selling house, etc. -Seroquel was helping with some behavioral issues but was stopped 5 days ago due to suspicion of causing bradycardia -Follow clinically, watch for Hypothyroidism -Continue home dose levothyroxine -TSH with the ER labs was within normal limits Hypertension -Patient has been suffering recently with episodes of hypotension due to bradycardia -Hold any blood pressure meds and follow vitals DVT Prophylaxis Lovenox Discharge planning: Will be discharged home with existing home health aide as soon as cleared by cardiology.
--- NOTE | 2018-08-13 17:06 | P.PN ---
Subjective Interval history: Sleepy Physical Exam Vital signs: Vital Signs 08/12/18 19:12 08/12/18 23:13 08/13/18 04:00 Temperature 97.7 F 98.1 F 97.4 F L Pulse Rate 46 L 57 L 48 L Respiratory Rate 18 18 19 Blood Pressure 143/82 H 157/73 H 146/77 H Pulse Oximetry 96 96 96 08/13/18 06:42 08/13/18 07:22 08/13/18 11:15 Temperature 98.0 F 97.7 F 97.9 F Pulse Rate 65 67 59 L Respiratory Rate 20 16 18 Blood Pressure 103/56 L 139/64 122/72 Pulse Oximetry 94 L 98 99 Intake & Output 08/12/18 08/13/18 08/13/18 18:59 06:59 18:59 Intake Total 300 / 300 Balance 300 / 300 Intake: IV 200 / 200 Rocephin Inj 1,000 MG In NS Inj 200 / 200 100 ML @ 200 mls/hr IV.SIG Q24H [facility] Rx#:[id number] Other 100 / 100 Other: Other Intake Source Saline Solution # Voids 3 2 # Incontinent Voids 1 # Urine Diapers 1 - Constitutional no acute distress - Routine HEENT Exam Eye: Present: EOMI, PERRL ENT: Present: mucous membranes moist - Routine Respiratory Exam Present: CTA bilaterally - Routine Cardiovascular Exam Present: RRR, S1, S2 - Routine Abdominal Exam Present: soft - Routine Psychiatric Exam Comments: Obtunded, disoriented Results - Labs CBC & Chem 7: 08/11/18 16:03 08/11/18 16:03 Laboratory Results - last 24 hr 08/13/18 06:36 POC Glucose 126 H Microbiology 08/11/18 16:12 Clean Catch Urine Urine Culture - Final Pseudomonas aeruginosa Escherichia coli Assessment and Plan - Assessment (1) Syncope Code(s): R55 - Syncope and collapse Status: Acute Plan: No new syncopal episode during hospitalization. Currently disoriented Sleepy. was having nightmare this morning Dementia For now observation No need for loop If new episode observed and patient neurological status improve then will reconsider. For now can be DH whenever ok with the managing team. I will be available on a PRN basis. (2) Bradycardia Code(s): R00.1 - Bradycardia, unspecified Status: Acute
--- NOTE | 2018-08-13 17:31 | P.DS ---
Date of admission: 08/11/18 17:58 Primary care physician: Verenice Holland MD Attending physician on discharge: Nato Landis Anticipated date of discharge: 08/13/18 Brief History from admission: 88-year-old female with a history of dementia and hypertension presents to the ER today after her children's zoo caretaker found that her heart rate was in the 30s. The overall picture began approximately 6 weeks ago when she began to experience periodic dyspnea with exertion, unlike her norm. Approximately 2 weeks ago she was started on Seroquel for behavioral issues related to dementia. She began having episodes of unresponsiveness and odd twitch-like behavior. 1 week ago she had a significant episode with weakness and unconsciousness and was brought to the ER for evaluation. Evaluation at that time showed no abnormality and she was deemed to have had a TIA. Since that time she has had less severe episodes including facial twitching, periodic brief unresponsiveness, head bobbing, speaking in tongues. These behaviors led up to today and raise concerns that the low heart rate might be related to these episodes. She has been off of Seroquel for the last 5 days, due to concerns that this may be altering the heart rate. She denies any nausea vomiting or diarrhea. She denies any chest pain, shortness of breath at rest, diaphoresis. She denies any dysuria or fevers despite having a urinary tract infection on urine screen. DS: Diagnosis - Discharge Diagnosis (1) Bradycardia Status: Acute (2) Syncope Status: Acute DS: Medications - Discharge Medications Prescriptions: cephalexin 250 mg PO Q6HR #20 cap DS: Summary Hospital Course: Patient is a 80-year-old female who presented to the ER after her children's zoo caretaker found her heart rate to be in the 30s. She has a past medical history of dementia and hypertension. Bulk Station Operator also reported several episodes of syncope with odd twitch-like behavior. Patient was started on oral approximately 2 weeks prior to presentation for behavioral issues related to dementia. Seroquel was stopped about 5 days before she presented; unclear when her last episode was. Serial enzymes and EKGs were negative. Patient did have several episodes of bradycardia and was evaluated by cardiology. Cardiology did not feel like intervention at this time was appropriate. She was also found to have a urinary tract infection on ER screen and was treated with Rocephin; transitioned to p.o. antibiotic for remainder of course at discharge. - Time Spent with Patient Total time spent providing and/or coordinating discharge services: Less than 30 minutes - Quality: VTE Deep Vein Thrombosis/Pulmonary Embolism Present on Admission: No Exam Vital signs: Vital Signs 08/12/18 19:12 08/12/18 23:13 08/13/18 04:00 Temperature 97.7 F 98.1 F 97.4 F L Pulse Rate 46 L 57 L 48 L Respiratory Rate 18 18 19 Blood Pressure 143/82 H 157/73 H 146/77 H Pulse Oximetry 96 96 96 08/13/18 06:42 08/13/18 07:22 08/13/18 11:15 Temperature 98.0 F 97.7 F 97.9 F Pulse Rate 65 67 59 L Respiratory Rate 20 16 18 Blood Pressure 103/56 L 139/64 122/72 Pulse Oximetry 94 L 98 99 Intake & Output 08/12/18 08/13/18 08/13/18 18:59 06:59 18:59 Intake Total 300 / 300 Balance 300 / 300 Intake: IV 200 / 200 Rocephin Inj 1,000 MG In NS Inj 200 / 200 100 ML @ 200 mls/hr IV.SIG Q24H [facility] Rx#:[id number] Other 100 / 100 Other: Other Intake Source Saline Solution # Voids 3 2 # Incontinent Voids 1 # Urine Diapers 1 Narrative: GENERAL: Well-nourished, well-developed adult female in no obvious distress. SKIN: Warm and dry. HEAD: Atraumatic. Normocephalic. CARDIOVASCULAR: Regular rate and rhythm. murmur RESPIRATORY: No accessory muscle use. Clear to auscultation. Breath sounds equal bilaterally. GASTROINTESTINAL: Abdomen soft, non-tender, non-distended. Positive bowel sounds. MUSCULOSKELETAL: Extremities without clubbing, cyanosis, or edema. No obvious deformities. NEUROLOGICAL: Awake and alert. No obvious cranial nerve deficits. Motor grossly within normal limits. Normal speech. PSYCHIATRIC: Poor historian Results Procedures completed during hospitalization: none Labs on day of discharge: Labs from last 24 hours 08/13/18 06:36 POC Glucose 126 H - Impressions ITS Impressions Chest X-Ray 08/11/18 15:20 CONCLUSION: No acute cardiopulmonary disease. Shoulder X-Ray 08/11/18 15:22 CONCLUSION: 1. Chronic rotator cuff injury. Outpatient MRI could be utilized to further assess. 2. Degenerative changes as detailed above. Wrist X-Ray 08/11/18 15:22 CONCLUSION: Diffuse bone demineralization and mild osteoarthritic findings of the wrist. No evidence of acute fracture. Discharge Plan - Discharge Disposition Patient Disposition: 01 Discharge Home - Discharge Condition Condition: Stable - Discharge Details Discharge Comment: Okay for discharge when cleared by cardiology - Physicians Team Primary Care Provider: Verenice Holland Attending Provider: Nato Landis Other Providers: Graciela Henson MD
[2018-08-13 17:32] VITALS: BP 130/68; PULSE 60; RESP 16; TEMP 99; O2SAT 98
== END 2018-08-13 20:18 | disposition home or self-care (01) ==
LOC: NEDA 14:29 → NEPC 14:29 → NEDA 18:45 → NEPGCP 18:48
PROVIDERS: ADMIT Hospitalist; ATTEND Hospitalist